=== PATIENT | male | born 1955 | race Caucasian/White ===

== ENCOUNTER → 2017-07-04 | Day surgery (SDC) | payer OTHER ==
[2017-06-29 10:19] VITALS: Ht 182.9 cm; Wt 104.5 kg
[~2017-07-04] VITALS: Ht 182.9 cm; Wt 104.5 kg
[~2017-07-04] MED LIST: AMLO2.5T PO; ASPCH81X PO; COEN100C7 PO; CYCL5TAB PO; HYDR25TA4 PO; INSPMPHMLG; LIDOCAINE HCL 2% 2 ML VIAL (20MG/ML) ONE; LOSA100T65 PO; MIDAZOLAM HCL 1 MG/ML 2ML VIAL ONE; ONDANSETRON INJ 2 MG/ML 2 ML VIAL ONE; PANT40TA PO; PROPOFOL IV EMULSION 10 MG/ML 20 ML VIAL IV ONE; ROSU20TA PO; SODIUM CHLORIDE 0.9% 500ML 500 ML IV ONE
--- NOTE | 2017-07-04 10:28 | Endo History and Physical ---
History & Physical Date of Service: Jul 04, 2017. Chief Complaint: Change in bowel habits Referring Physician: Glenn Yadav History of Present Illness 62 yo CM who presents for colonoscopy secondary to change in bowel habits. Past Medical History Diabetes, Reflux, High Cholesterol, Hypertension Past Surgical History Hx Cardiac Surgery: Yes (HEART CATH-NO STENTS) Hx Internal Defibrillator: No Hx Pacemaker: No Hx Abdominal Surgery: No Hx of Implantable Prosthesis: No Hx Post-Op Nausea and Vomiting: No Hx Cancer Surgery: No Hx Thoracic Surgery: No Hx Orthopedic: Yes (TRIGGER FINGERS BOTH HANDS) Hx Urinary Tract Surgery: No Family History None Social History Smoking Status: Current Every Day Smoker Hx Substance Use: No Hx Alcohol Use: Yes (2 BEERS WEEKLY) Allergies Coded Allergies: Penicillins (Verified Allergy, Unknown, A CHILD, TOLD BY MOTHER, 07/04/17 ) Uncoded Allergies: HAY FEVER (Allergy, Unknown, RUNNY NOSE, 06/29/17) Current Medications Reported Home Medications Medications Dose Route/Sig Max Daily Dose Days Date Category Dose Instructions Protonix (Pantoprazole Sodium) 40 Mg Tab 40 Mg PO QAM 06/29/17 Reported Cozaar (Losartan Potassium) 100 Mg Tab 100 Mg PO QAM 06/29/17 Reported Hctz (Hydrochlorothiazide) 25 Mg Tab 25 Mg PO QPM 06/29/17 Reported Flexeril (Cyclobenzaprine Hcl) 5 Mg Tab 5 Mg PO TID PRN 06/29/17 Reported PRN Crestor (Rosuvastatin Calcium) 20 Mg Tab 20 Mg PO QPM 06/29/17 Reported Coq10 (Coenzyme Q10 (Ubidecarenone)) 100 Mg Cap 1 Cap PO QAM 06/29/17 Reported Aspirin Chewable (Aspirin) 81 Mg Chew 81 Mg PO QAM 06/29/17 Reported Norvasc (Amlodipine Besylate) 2.5 Mg Tab 2.5 Mg PO QPM 06/29/17 Reported Insulin Humalog Pump (Insulin Human Lispro) Pump 1 Ea N/A UD 10/08/11 Reported Vital Signs Weight (Kilograms): 104.55 Height (Feet): 6 Height (Inches): 0 Date Time Temp Pulse Resp B/P (MAP) Pulse Ox O2 Delivery O2 Flow Rate FiO2 07/04/17 10:17 36.8 81 18 117/87 (97) 95 Room Air Physical Exam General Appearance: WD/WN, no apparent distress Respiratory/Chest: Auscultation: breath sounds normal Cardiovascular: Heart Auscultation: RRR Abdomen: Bowel Sounds: normal Inspection & Palpation: soft, non-distended, no tenderness, guarding & rebound Assessment and Plan Assessment: 62 yo CM who presents for colonoscopy secondary to change in bowel habits. Plan: Proceed with colonoscopy.
--- NOTE | 2017-07-04 11:25 | Anesthesiology Progress Note ---
Anesthesia Post Op Note Date & Time Jul 04, 2017 at 11:24 Vital Signs Pain Intensity: 0 Vital Signs Past 12 Hours Date Time Temp Pulse Resp B/P (MAP) Pulse Ox O2 Delivery O2 Flow Rate FiO2 07/04/17 10:17 36.8 81 18 117/87 (97) 95 Room Air Notes Mental Status: alert / awake / arousable, participated in evaluation Pt Amnestic to Procedure: Yes Nausea / Vomiting: adequately controlled Pain: adequately controlled Airway Patency, RR, SpO2: stable & adequate BP & HR: stable & adequate Hydration State: stable & adequate Anesthetic Complications: no major complications apparent
--- NOTE | 2017-07-04 11:53 | GI REPORT ---
Procedure Date: 07/04/2017 10:15 AM Procedure: Colonoscopy Indications: Change in bowel habits Medicines: Monitored Anesthesia Care Complications: No immediate complications. Estimated Blood Loss: Estimated blood loss: none. Procedure: Pre-Anesthesia Assessment: - Prior to the procedure, a History and Physical was performed, and patient medications and allergies were reviewed. The patient's tolerance of previous anesthesia was also reviewed. The risks and benefits of the procedure and the sedation options and risks were discussed with the patient. All questions were answered, and informed consent was obtained. Prior Anticoagulants: The patient has taken aspirin, last dose was 1 day prior to procedure. ASA Grade Assessment: II - A patient with mild systemic disease. After reviewing the risks and benefits, the patient was deemed in satisfactory condition to undergo the procedure. After I obtained informed consent, the scope was passed under direct vision. Throughout the procedure, the patient's blood pressure, pulse, and oxygen saturations were monitored continuously. The scope was introduced through the anus and advanced to the terminal ileum. The colonoscopy was performed without difficulty. The patient tolerated the procedure well. The quality of the bowel preparation was good. The terminal ileum, ileocecal valve, appendiceal orifice, and rectum were photographed. Findings: Two sessile polyps were found in the ascending colon. The polyps were 5 to 8 mm in size. These polyps were removed with a hot snare. Resection and retrieval were complete. To prevent bleeding after the polypectomy, one hemostatic clip was successfully placed (MR conditional). There was no bleeding at the end of the procedure. A 5 mm polyp was found in the transverse colon. The polyp was sessile. The polyp was removed with a hot snare. Resection and retrieval were complete. A 10 mm polyp was found in the rectum. The polyp was pedunculated. The polyp was removed with a hot snare. Resection and retrieval were complete. Multiple small-mouthed diverticula were found in the sigmoid colon. Non-bleeding internal hemorrhoids were found during retroflexion. The hemorrhoids were small. Impression: - Two 5 to 8 mm polyps in the ascending colon, removed with a hot snare. Resected and retrieved. Clip (MR conditional) was placed. - One 5 mm polyp in the transverse colon, removed with a hot snare. Resected and retrieved. - One 10 mm polyp in the rectum, removed with a hot snare. Resected and retrieved. - Diverticulosis in the sigmoid colon. - Non-bleeding internal hemorrhoids. Recommendation: - Resume previous diet. - Continue present medications. - Repeat colonoscopy for surveillance based on pathology results. - Return to primary care physician as previously scheduled. Dale Murillo, DO 07/04/2017 11:52:43 AM This report has been signed electronically. Note Initiated On: 07/04/2017 10:15 AM I attest to the content of the Intraoperative Record and orders documented therein, exceptions below
--- NOTE | 2017-07-04 11:58 | Discharge Instructions ---
Endoscopy Patient Instructions Date / Procedure(s) Performed Jul 04, 2017. Colonoscopy Allergy Information Coded Allergies: Penicillins (Verified Allergy, Unknown, A CHILD, TOLD BY MOTHER, 07/04/17 ) Uncoded Allergies: HAY FEVER (Allergy, Unknown, RUNNY NOSE, 06/29/17) Discharge Date / Findings Jul 04, 2017. Colon polyps Rectal polyp Diverticulosis Internal hemorrhoids Medication Instructions OK to resume all medications today as prescribed Reported Home Medications Medications Dose Route/Sig Max Daily Dose Days Date Category Dose Instructions Protonix (Pantoprazole Sodium) 40 Mg Tab 40 Mg PO QAM 06/29/17 Reported Cozaar (Losartan Potassium) 100 Mg Tab 100 Mg PO QAM 06/29/17 Reported Hctz (Hydrochlorothiazide) 25 Mg Tab 25 Mg PO QPM 06/29/17 Reported Flexeril (Cyclobenzaprine Hcl) 5 Mg Tab 5 Mg PO TID PRN 06/29/17 Reported PRN Crestor (Rosuvastatin Calcium) 20 Mg Tab 20 Mg PO QPM 06/29/17 Reported Coq10 (Coenzyme Q10 (Ubidecarenone)) 100 Mg Cap 1 Cap PO QAM 06/29/17 Reported Aspirin Chewable (Aspirin) 81 Mg Chew 81 Mg PO QAM 06/29/17 Reported Norvasc (Amlodipine Besylate) 2.5 Mg Tab 2.5 Mg PO QPM 06/29/17 Reported Insulin Humalog Pump (Insulin Human Lispro) Pump 1 Ea N/A UD 10/08/11 Reported Provider Instructions Activity Restrictions - No exercising or heavy lifting for 24 hours. - Do not drink alcohol the day of the procedure. - Do not drive a car or operate machinery until the day after the procedure. - Do not make any important decisions or sign important papers in 24 hours after the procedure. Following Day: - Return to full activity which may include returning to work/school. Diet Start your diet with liquids and light foods (jello, soup, juice, toast). Then eat your usual diet if not nauseated. Treatment For Common After Affects For mild abdominal pain, bloating, or excessive gas: - Rest - Eat lightly - Lie on right side Follow-Up Information Follow-up with Glenn Yadav as scheduled Anesthesia Information What You Should Know You have had a procedure that required some medicine to reduce anxiety and discomfort. This treatment is called moderate sedation. After receiving the treatment, you may be sleepy, but you will be able to breathe on your own. The effects of the treatment may last for several hours. Follow these instructions along with Activity/Diet recommendations noted above: * Do NOT do anything where dizziness or clumsiness would be dangerous. * Rest quietly at home today, then you can be up and about tomorrow. * Have a responsible person stay with you the rest of today. * You may have had an I.V. today. If so, you may take the dressing off later today. Recommendations Call your doctor if: * Trouble breathing * Continuous vomiting for more than 24 hours * Temperature above 101 degrees * Severe abdominal pain or bloating * Pain not relieved by pain medicine ordered * There is increased drainage or redness from any incision * A large amount of rectal bleeding greater than 2-3 tablespoons. (If you had a polyp/s removed or have hemorrhoids, a small amount of blood - from the rectum is to be expected.) * You have any unanswered questions or concerns. IN THE EVENT OF A SERIOUS EMERGENCY, GO TO THE NEAREST EMERGENCY ROOM Your discharge instructions were prepared by provider Dale Murillo. Patient Instructions Signature Page Justin Olson Patient (or Guardian) Signature/Date: I have read and understand the instructions given to me by my caregivers. Caregiver/RN/Doctor Signature/Date: The above-named patient and/or guardian has received patient instructions on this date. + Original Patient Signature Page (only) stays with chart. Please make copy for patient.
[2017-07-04 12:30] VITALS: BP 133/78; PULSE 78; O2SAT 98
== END | disposition home or self-care (01) ==
LOC: C.GI 09:50
PROVIDERS: ATTEND Internal Medicine
DX: D12.2 Benign neoplasm of ascending colon (principal); D12.3 Benign neoplasm of transverse colon; D12.8 Benign neoplasm of rectum; K57.30 Diverticulosis of large intestine without perforation or abscess without bleeding; K64.8 Other hemorrhoids; R19.4 Change in bowel habit; I10 Essential (primary) hypertension; E78.00 Pure hypercholesterolemia, unspecified; E11.9 Type 2 diabetes mellitus without complications; K21.9 Gastro-esophageal reflux disease without esophagitis; F17.200 Nicotine dependence, unspecified, uncomplicated; Z79.82 Long term (current) use of aspirin; Z79.899 Other long term (current) drug therapy

== ENCOUNTER 2021-11-29 09:47 | Inpatient (IN) ==
[2021-11-29] MEDS ORDERED: KETOROLAC TROMETHAMINE 15 MG/ML VIAL IV ONE (10:01)
[2021-11-29] MEDS ORDERED: ONDANSETRON INJ 2 MG/ML 2 ML VIAL IV STA (10:01)
[2021-11-29] MEDS ORDERED: MoRPHine SULFATE 10 MG/ML CARP/VIAL IV STA (10:01)
--- NOTE | 2021-11-29 10:06 | Emergency Department Note ---
Impression & Plan Back pain, Blood glucose elevated ED Provider Note NAME: BONY MALDONADO Jr AGE: 66 SEX: M : 1955 ARRIVES VIA: Ambulance INFORMANT: Patient ED PROVIDER(S): Rubén Delacruz DO CHIEF COMPLAINT: Back pain HPI: Patient is a 67-year-old male who presents the ER for back pain. Symptoms started this morning when he woke up. It is in the left lower side. This has been present for the past several years but is significantly worse today. He notes it comes and goes in regards to spasms. Currently only a 2 out of 10 but when the spasms is a 10 out of 10. Denies any fevers or trauma. He notes he sits to put his shoes on and dries off without bending. Denies any trauma or fevers. No belly pain, nausea, vomiting, or diarrhea. No dysuria, urgency, or frequency. No other exacerbating or remitting factors. ROS: See above HPI for pertinent positives & negatives. A total of 10 systems reviewed and were otherwise negative. PAST MEDICAL HISTORY:See Below PAST SURGICAL HISTORY:See Below FAMILY HISTORY:See Below SOCIAL HISTORY:See Below HOME MEDICATIONS:See Below ALLERGIES:See Below VITALS:See Below PHYSICAL EXAMINATION: GENERAL: Sitting up in bed, alert, well appearing, well nourished, no distress, non-toxic EYE EXAM: normal conjunctiva. PERRL and EOM's grossly intact. OROPHARYNX: no exudate, no erythema, lips, buccal mucosa, and tongue normal and mucous membranes are moist NECK: supple, no nuchal rigidity, no adenopathy, non-tender LUNGS: Clear to auscultation. Normal chest wall mechanics HEART: no murmurs, S1 normal and S2 normal ABDOMEN: abdomen soft, non-tender, normo-active bowel sounds, no masses, no rebound or guarding. BACK: Back is symmetrical on inspection and there is no deformity, no midline tenderness, acute reproducible tenderness in the lower lumbar left paraspinal region tracking into left SI joint UPPER EXTREMITIES: upper extremities are grossly normal. LOWER EXTREMITIES:Flexion and extension of the hips, knees, ankles, and EHL 5/5 bilaterally. Gross sensation is intact. DPs are 2/4 bilateral. Patellar and Achilles reflexes are 2/4 bilateral NEURO EXAM: Normal sensorium, cranial nerves II-XII grossly intact, normal speech, no gross weakness of arms, no gross weakness of legs. MEDICAL DECISION MAKING: Patient is a 66-year-old male who presents ER for above-stated complaint. IV was established blood work was obtained.Labs show no significant leukocytosis or anemia. BMP along with LFTs bilirubin and lipase was unremarkable. BSG was slightly elevated at 186. Covid was negative. CT lumbar spine showed DJD with central canal narrowing and mild disc protrusion. He was given multiple doses of morphine as well as IV Toradol. He was comfortable resting but could not sit up secondary to pain. As patient cannot move felt he warranted observation with further pain meds. Triage Nursing notes reviewed. Limited review of prior medical records performed Vital Signs: reviewed and remarkable for no significant abnormalities Differential diagnosis: Differential diagnoses includes but is not limited to lumbar radiculopathy, kidney stone, muscle strain, facture, cauda equina, mass, and disc herniation. ER treatment provided: See below Diagnostics interpreted by me: ECG: none Cardiac Monitoring: An order was placed for continuous cardiac monitoring. The monitor shows a rate of 60 with sinus rhythm. Laboratory studies: As stated above and show below. Imaging studies: CT as discussed above of the lumbar spine Consultation(s): Discussed with Dr. Molina Procedures: none Critical Care: None Past Med/Surg History Medical History Acid reflux Coronary artery disease Moderate non-obstructive CAD per 05/13/21 cardiac cath, Follows with Dr. Carrasco Diabetes + Insulin pump Diabetic retinopathy associated with type 1 diabetes mellitus GERD (gastroesophageal reflux disease) History of neoplasm of bladder Hyperlipidemia Hypertension IBS (irritable bowel syndrome) Peripheral arterial disease R/L LE stents (01/2021, 03/2021) Prostate cancer s/p prostatectomy (~2017) Surgical History History of bladder surgery TURBT (06/27/21): MAC at [facility] History of prostate biopsy History of prostatectomy History of surgical procedure on eye proper using laser R/L laser eye procedure r/t diabetic retinopathy History of tonsillectomy History of tooth extraction History of trigger finger R/L Hx of bilateral cataract extraction Hx of cardiac catheterization 04/2021 > no stents Hx of colonoscopy 2019 Hx of vasectomy S/P angioplasty with stent R/L LE stents (01/2021, 03/2021) Family History Grandmother Family history of diabetes mellitus Daughter Family history of diabetes mellitus Diabetes Sister Diabetes Family history of diabetes mellitus Grandmother (Maternal) Diabetes Father Heart disease Myocardial infarction Grandfather (Paternal) Heart disease Myocardial infarction Other No family history of adverse response to anesthesia Denies family history of Ovarian cancer Prostate cancer Breast cancer Lung cancer Colorectal cancer Stroke Social History Smoking Status: Current every day smoker Tobacco Type: Cigarettes packs per day: 1; Cigarettes Per Day: 20 CIGS A DAY; Second Hand Exposure: Yes (SPOUSE SMOKES); Hx Alcohol Use: Yes Alcohol type: beer Alcohol Intake Frequency: Monthly or Less Hx Substance Use: No Preferred Language: Vietnamese Communication Ability: Effective Visual Impairment: Limited Hearing Ability: Normal Drafting Teacher Required: No Beliefs That Will Affect Care: None marital status: Current Living Situation: Spouse current occupational status: employed 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 How many Children do You have: 3 Feels Safe at Home: Yes Childhood Exposure to Second-Hand Smoke: Yes caffeine: Yes (10 cups/day) during the past year weight has: remained stable Dental Care, Regularly: Yes Physical Activity Frequency: Does not Exercise Seatbelt Use: always Sunscreen Use: No Assistive Devices: Glasses Allergies Allergies Allergy/AdvReac Type Severity Reaction Status Date / Time Penicillins Allergy Unknown Childhood Verified 11/29/21 12:30 (told by mother) Home Meds Home Medications Medication Instructions Recorded Confirmed hydrochlorothiazide 25 mg tablet 25 mg PO QAM 09/11/18 11/29/21 losartan 100 mg tablet 100 mg PO HS 09/11/18 11/29/21 pantoprazole 40 mg tablet,delayed 40 mg PO QAM 09/11/18 11/29/21 release amlodipine 5 mg tablet 5 mg PO HS tab 09/16/18 11/29/21 rosuvastatin 40 mg tablet 40 mg PO HS 10/14/20 11/29/21 docusate sodium 100 mg capsule 100 mg PO HS 03/08/21 11/29/21 (Colace) insulin lispro 100 unit/mL 1 sliding scale dose SUBCUT 03/08/21 11/29/21 subcutaneous solution (Humalog USEASDIRECTD U-100 Insulin) aspirin 81 mg tablet,delayed 81 mg PO QAM 08/23/21 11/29/21 release cholecalciferol (vitamin D3) 125 125 mcg PO QAM 08/29/21 11/29/21 mcg (5,000 unit) tablet (Vitamin D3) linaclotide 290 mcg capsule 290 mcg PO HS 11/29/21 11/29/21 (Linzess) Results & Data (ED) Vital Signs Vital Signs - 24 hr 11/29/21 10:30 11/29/21 11:50 11/29/21 13:00 Temperature 36.7 C Temperature Source Oral Pulse Rate 82 Pulse Rate [Finger] 58 L 58 L Respiratory Rate 20 18 18 Respiratory Depth Normal Blood Pressure 143/82 H Blood Pressure [Right Arm] 146/77 H 128/68 Blood Pressure Mean 102 Blood Pressure Mean [Right Arm] 100 88 Pulse Oximetry 97 96 98 Oxygen Delivery Method Room Air Room Air Room Air Sepsis Recent Fever Within 48 Hours No Sepsis New/Unexplained Change in Mental Status No Sepsis Action Taken by Nursing No Action Required Laboratory Data Result diagrams: 11/29/21 10:00 11/29/21 10:00 Lab Results 11/29/21 11/29/21 11/29/21 Range/Units 10:00 10:00 13:05 WBC 5.08 (4.8-10.8) K/uL RBC 4.58 L (4.7-6.1) M/uL Hgb 14.5 (14.0-18.0) g/dL Hct 42.9 (42-52) % MCV 93.7 (80-100) fL MCH 31.7 (25-34) pg MCHC 33.8 (32-36) g/dL RDW Std Deviation 45.2 (36.4-46.3) fL RDW Coeff of Zeus 13.2 (11.5-14.5) % Plt Count 280 (130-400) K/uL MPV 9.7 (7.4-10.4) fL Immature Gran % (Auto) 0.4 % Neut % (Auto) 56.6 % Lymph % (Auto) 26.2 % Coleman % (Auto) 8.3 % Eos % (Auto) 7.5 % Baso % (Auto) 1.0 % Neut # (Auto) 2.88 (1.4-6.5) K/uL Lymph # (Auto) 1.33 (1.2-3.4) K/uL Coleman # (Auto) 0.42 (0.11-0.59) K/uL Eos # (Auto) 0.38 (0-0.5) K/uL Baso # (Auto) 0.05 (0-0.2) K/uL Immature Gran # (Auto) 0.02 (0.00-0.02) K/uL Sodium 138 (136-145) mmol/L Potassium 3.7 (3.5-5.1) mmol/L Chloride 107 (98-107) mmol/L Carbon Dioxide 25 (21-32) mmol/L Anion Gap 6 (3-11) BUN 14 (6-23) mg/dl Creatinine 0.77 (0.6-1.4) mg/dl Est Cr Clr Drug Dosing Not Reportable Est GFR ( Amer) 108.1 ml/min Est GFR (Non-Af Amer) 93.2 ml/min BUN/Creatinine Ratio 18.2 (10-20) Glucose 186 H (70-99(Fasting)) mg/dl Calcium 9.4 (8.5-10.1) mg/dl Total Bilirubin 0.4 (0.2-1.0) mg/dl AST 17 (13-39) U/L ALT 21 (7-52) U/L Alkaline Phosphatase 50 (34-104) U/L Total Protein 6.6 (6.0-8.3) gm/dl Albumin 4.2 (3.4-5.0) gm/dl Globulin 2.4 L (2.5-4.0) gm/dl Albumin/Globulin Ratio 1.8 (0.9-2) Lipase < 3 L (11-82) U/L SARS-CoV-2, RNA, NAAT NEGATIVE (NEGATIVE) Administered Medications Discontinued Medications Ketorolac Tromethamine (Ketorolac Tromethamine 15 Mg/Ml Vial) 15 mg IV NOW ONE Stop: 11/29/21 10:02 Last Admin: 11/29/21 10:15 Dose: 15 mg Documented by: [id number] Morphine Sulfate (Morphine Sulfate 10 Mg/Ml Carp/Vial) 6 mg IV NOW STA Stop: 11/29/21 10:02 Last Admin: 11/29/21 10:15 Dose: 6 mg Documented by: [id number] Morphine Sulfate (Morphine Sulfate 4 Mg/Ml 1 Ml Carp\Vial) 4 mg IV NOW STA Stop: 11/29/21 12:14 Last Admin: 11/29/21 12:30 Dose: 4 mg Documented by: [id number] Ondansetron HCl (Ondansetron Inj 2 Mg/Ml 2 Ml Vial) 4 mg IV NOW STA Stop: 11/29/21 10:02 Last Admin: 11/29/21 12:30 Dose: Not Given Documented by: [id number] Imaging Data Radiologist's Impression: Lumbar Spine CT 11/29/21 10:[address] DOSE: 654.64 mGycm HISTORY: lower back pain TECHNIQUE: Multiaxial CT images of the lumbar spine were performed and reformatted in the sagittal and coronal plane without the use of contrast. A dose lowering technique was utilized adhering to the principles of ALARA. COMPARISON: Lumbar spine CT 09/14/2020. FINDINGS: No fractures or subluxation within the lumbar spine. Mild disc space narrowing at L5-S1. Mild facet degenerative changes throughout the lumbar spine. The visualized sacrum appears intact. Paravertebral soft tissues are within normal limits. Mild central canal narrowing at L3-L4 and moderate central canal narrowing at L4-5 due to broad-based posterior disc bulges and ligamentum flavum and facet hypertrophy. There is a partially calcified small left paracentral focal disc protrusion at L5-S1 which results in mild central canal narrowing. This remains unchanged. IMPRESSION: 1. No fractures within the lumbar spine. 2. A partially calcified small left paracentral focal disc protrusion at L5-S1 which results in mild central canal narrowing, unchanged. 3. There is mild central canal narrowing at L3-L4 and moderate central canal narrowing at L4-L5 due to broad-based posterior disc bulges, unchanged. ACT 112: Negative or not required by law. Electronically signed by: Greg Glasgow M.D. 11/29/2021 11:10 AM Discharge Plan Visit Data Chief Complaint: Back Injury/Pain Stated Complaint: LOWER L BACK PAIN ED Provider: Rubén Delacruz Discharge Problem: Back pain, Blood glucose elevated Forms Stand Alone Forms: My GetAuto[employer]ids Prescriptions Prescriptions: No Action rosuvastatin 40 mg tablet 40 mg PO HS RF: 0 insulin lispro [Humalog U-100 Insulin] 100 unit/mL solution 1 sliding scale dose subcut USEASDIRECTD RF: 0 pantoprazole 40 mg Tablet,Delayed Release (Dr/Ec) 40 mg PO QAM RF: 0 hydrochlorothiazide 25 mg Tablet 25 mg PO QAM RF: 0 losartan 100 mg Tablet 100 mg PO HS RF: 0 amlodipine 5 mg tablet 5 mg PO HS RF: 0 aspirin 81 mg Tablet,Delayed Release (Dr/Ec) 81 mg PO QAM RF: 0 cholecalciferol (vitamin D3) [Vitamin D3] 125 mcg (5,000 unit) Tablet 125 mcg PO QAM RF: 0 Linzess 290 mcg capsule 290 mcg PO HS RF: 0 docusate sodium [Colace] 100 mg capsule 100 mg PO HS RF: 0 Referrals Referrals: Patrick Raymond DO [Primary Care Provider] - Discharge Problem: Back pain Qualifiers: Back pain location: low back pain Chronicity: acute Back pain laterality: left Sciatica presence: without sciatica Qualified Code(s): M54.50 - Low back pain, unspecified
[2021-11-29 10:22] LABS: Basophils # (auto) 0.05 K/uL (0-0.2); Eosinophils # (auto) 0.38 K/uL (0-0.5); Eosinophils % (auto) 7.5 %; Hematocrit (blood only) 42.9 % (42-52); Hemoglobin 14.5 g/dL (14.0-18.0); Immature Granulocytes # (auto) 0.02 K/uL (0.00-0.02); Immature Granulocytes % (auto) 0.4 %; Lymphocytes # (auto) 1.33 K/uL (1.2-3.4); Lymphocytes % (auto) 26.2 %; Mean Corpuscular Hemoglobin 31.7 pg (25-34); Mean Corpuscular Hgb Conc 33.8 g/dL (32-36); Mean Corpuscular Volume 93.7 fL (80-100); Mean Platelet Volume 9.7 fL (7.4-10.4); Monocytes # (auto) 0.42 K/uL (0.11-0.59); Monocytes % (auto) 8.3 %; Neutrophils # (auto) 2.88 K/uL (1.4-6.5); Neutrophils % (auto) 56.6 %; Platelet Count 280 K/uL (130-400); RDW Coefficient of Variation 13.2 % (11.5-14.5); RDW Standard Deviation 45.2 fL (36.4-46.3); Red Blood Count 4.58 M/uL (4.7-6.1); White Blood Count 5.08 K/uL (4.8-10.8)
[2021-11-29 10:45] LABS: Anion Gap 6 (3-11); BUN Creatinine Ratio 18.2 (10-20); Blood Urea Nitrogen 14 mg/dl (6-23); Calcium 9.4 mg/dl (8.5-10.1); Carbon Dioxide 25 mmol/L (21-32); Chloride 107 mmol/L (98-107); Est GFR (African American) 108.1 ml/min; Est GFR (Non-African American) 93.2 ml/min; Glucose 186 mg/dl (70-99(Fasting)); Potassium 3.7 mmol/L (3.5-5.1); Sodium 138 mmol/L (136-145)
[2021-11-29 10:50] LABS: Alanine Aminotransferase 21 U/L (7-52); Albumin Globulin Ratio 1.8 (0.9-2); Albumin Level 4.2 gm/dl (3.4-5.0); Alkaline Phosphatase 50 U/L (34-104); Aspartate Aminotransferase 17 U/L (13-39); Bilirubin,Total 0.4 mg/dl (0.2-1.0); Globulin 2.4 gm/dl (2.5-4.0); Lipase < 3 U/L (11-82); Total Protein 6.6 gm/dl (6.0-8.3)
--- NOTE | 2021-11-29 11:11 | CT Scan Report ---
LUMBAR SPINE CT CT DOSE: 654.64 mGycm HISTORY: lower back pain TECHNIQUE: Multiaxial CT images of the lumbar spine were performed and reformatted in the sagittal an d coronal plane without the use of contrast. A dose lowering technique was utilized adhering to the principles of ALARA. COMPARISON: Lumbar spine CT 09/14/2020. FINDINGS: No fractures or subluxation within the lumbar spine. Mild disc space narrowing at L5-S1. Mi ld facet degenerative changes throughout the lumbar spine. The visualized sacrum appears intact. Para vertebral soft tissues are within normal limits. Mild central canal narrowing at L3-L4 and moderate c entral canal narrowing at L4-5 due to broad-based posterior disc bulges and ligamentum flavum and fac et hypertrophy. There is a partially calcified small left paracentral focal disc protrusion at L5-S1 which results in mild central canal narrowing. This remains unchanged. IMPRESSION: 1. No fractures within the lumbar spine. 2. A partially calcified small left paracentral focal disc protrusion at L5-S1 which results in mild central canal narrowing, unchanged. 3. There is mild central canal narrowing at L3-L4 and moderate central canal narrowing at L4-L5 due t o broad-based posterior disc bulges, unchanged. ACT 112: Negative or not required by law. Electronically signed by: Greg Glasgow M.D. 11/29/2021 11:10 AM
[2021-11-29] MEDS ORDERED: MoRPHine SULFATE 4 MG/ML 1 ML CARP\\VIAL IV STA (12:13)
--- NOTE | 2021-11-29 14:21 | History & Physical Report ---
Date of Service November 29, 2021 Assessment & Plan (1) Intractable back pain: Plan: Patient without significant findings on lumbar CT Will check MRI of the thoracic and lumbar spine PT/OT evaluation Hold off on steroids secondary to history of diabetes Can try p.o. tramadol along with IV Toradol as needed 3 times daily baclofen ATC and If any findings on MRI or patient continues to have significant pain over 24 hours, consider spinal orthopedics consultation (2) Diabetes mellitus type 1: (3) Insulin pump in place: Plan: Okay for patient to continue insulin pump as noted Diabetic diet (4) Coronary artery disease: Plan: Continue medications as ordered including statin (5) Dyslipidemia: Plan: Statin as noted above (6) Hypertension: Plan: Blood pressure currently 128/60, continue to monitor History of Present Illness Chief Complaint: back pain Primary Care Provider: Patrick Raymond DO This is a 66-year-old male with past medical history of diabetes, previous bladder cancer, peripheral arterial disease presents today complaining of back pain. Patient is a decent historian. Patient states that he has had longstanding pain in his back but is typically not severe. Over the past few weeks, he feels has been getting somewhat worse. 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 This morning, he could not get off the floor secondary to significant pain in his eventually went to the emergency room for further evaluation. He localizes the pain to a point in the left lower lateral region, just over the left iliac crest. This area is tender and very spasmodic. He was given 2 doses of morphine with out much relief and is now being placed in observation for further treatment. Patient denies significant radiation of this pain. He denies any peripheral radiculopathy or neuropathy from this. He does have spasmatic pain even when lying still. He denies systemic symptoms such as fever or chills. Allergies Allergy/AdvReac Type Severity Reaction Status Date / Time Penicillins Allergy Unknown Childhood Verified 11/29/21 12:30 (told by mother) Home Medications Medication Instructions Recorded Confirmed Type hydrochlorothiazide 25 mg tablet 25 mg PO QAM 09/11/18 11/29/21 History losartan 100 mg tablet 100 mg PO HS 09/11/18 11/29/21 History pantoprazole 40 mg tablet,delayed 40 mg PO QAM 09/11/18 11/29/21 History release amlodipine 5 mg tablet 5 mg PO HS tab 09/16/18 11/29/21 History rosuvastatin 40 mg tablet 40 mg PO HS 10/14/20 11/29/21 History docusate sodium 100 mg capsule 100 mg PO HS 03/08/21 11/29/21 History (Colace) insulin lispro 100 unit/mL 1 sliding scale dose SUBCUT 03/08/21 11/29/21 History subcutaneous solution (Humalog USEASDIRECTD U-100 Insulin) aspirin 81 mg tablet,delayed 81 mg PO QAM 08/23/21 11/29/21 History release cholecalciferol (vitamin D3) 125 125 mcg PO QAM 08/29/21 11/29/21 History mcg (5,000 unit) tablet (Vitamin D3) linaclotide 290 mcg capsule 290 mcg PO HS 11/29/21 11/29/21 History (Linzess) Past Med/Surg History Medical History Acid reflux Coronary artery disease Moderate non-obstructive CAD per 05/13/21 cardiac cath, Follows with Dr. Carrasco Diabetes + Insulin pump Diabetic retinopathy associated with type 1 diabetes mellitus GERD (gastroesophageal reflux disease) History of neoplasm of bladder Hyperlipidemia Hypertension IBS (irritable bowel syndrome) Peripheral arterial disease R/L LE stents (01/2021, 03/2021) Prostate cancer s/p prostatectomy (~2017) Surgical History History of bladder surgery TURBT (06/27/21): MAC at [facility] History of prostate biopsy History of prostatectomy History of surgical procedure on eye proper using laser R/L laser eye procedure r/t diabetic retinopathy History of tonsillectomy History of tooth extraction History of trigger finger R/L Hx of bilateral cataract extraction Hx of cardiac catheterization 04/2021 > no stents Hx of colonoscopy 2019 Hx of vasectomy S/P angioplasty with stent R/L LE stents (01/2021, 03/2021) Family History Grandmother Family history of diabetes mellitus Daughter Family history of diabetes mellitus Diabetes Sister Diabetes Family history of diabetes mellitus Grandmother (Maternal) Diabetes Father Heart disease Myocardial infarction Grandfather (Paternal) Heart disease Myocardial infarction Other No family history of adverse response to anesthesia Denies family history of Ovarian cancer Prostate cancer Breast cancer Lung cancer Colorectal cancer Stroke Social History Smoking Status: Current every day smoker Tobacco Type: Cigarettes packs per day: 1; Cigarettes Per Day: 20 CIGS A DAY; Second Hand Exposure: Yes (SPOUSE SMOKES); Hx Alcohol Use: Yes Alcohol type: beer Alcohol Intake Frequency: Monthly or Less Hx Substance Use: No Preferred Language: Greenlandic Communication Ability: Effective Visual Impairment: Limited Hearing Ability: Normal 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 Shellfish Meats Required: No Beliefs That Will Affect Care: None marital status: Current Living Situation: Spouse current occupational status: employed 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 How many Children do You have: 3 Feels Safe at Home: Yes Childhood Exposure to Second-Hand Smoke: Yes caffeine: Yes (10 cups/day) during the past year weight has: remained stable Dental Care, Regularly: Yes Physical Activity Frequency: Does not Exercise Seatbelt Use: always Sunscreen Use: No Assistive Devices: Glasses Review of Systems Constitutional: no fever, no chills, no weakness, no weight loss and no weight gain Eyes: as per Subjective / HPI Respiratory: no cough, no chest congestion, no dyspnea and no dyspnea on exertion Cardiovascular: no chest pain, no orthopnea, no palpitations, no lightheadedness and no edema Gastrointestinal: no abdominal pain, no nausea, no vomiting, no constipation and no diarrhea/loose stools Musculoskeletal: + back pain, + limited range of motion and + problem reported; no neck pain, no joint pain, no stiffness and no myalgia Integumentary: no rash Neurologic: no gait abnormality, no unsteadiness, no falls, no localized weakness, no generalized weakness, no paralysis, no tingling, no numbness, no radiating pain and no restless legs Physical Exam Constitutional: cooperative Neck: trachea midline, no thyromegaly Respiratory: normal respiratory effort Auscultation: lungs clear to auscultation bilaterally; no crackles, no rales, no rhonchi and no wheezes Cardiovascular: Rate/Rhythm: regular rate and regular rhythm Heart Sounds: normal S1, normal S2 and + murmur Gastrointestinal (Abdomen): Inspection/Auscultation: abdomen normal to inspection Percussion/Palpation: abdomen soft; abdomen nontender, no guarding, abdomen not rigid and no hepatosplenomegaly Musculoskeletal: point tenderness as described, no palpable abnormality Skin: no rashes, warm and dry Results & Data Results & Data ([facility]) Vital Signs (Past 12 Hours) Vital Signs Temp Pulse Pulse Resp BP BP Pulse Ox 11/29/21 13:00 58 L 18 128/68 98 11/29/21 11:50 58 L 18 146/77 H 96 11/29/21 10:30 36.7 C 82 20 143/82 H 97 Laboratory Results Laboratory Results WBC 5.08 K/uL (4.8-10.8) 11/29/21 10:00 RBC 4.58 M/uL (4.7-6.1) L 11/29/21 10:00 Hgb 14.5 g/dL (14.0-18.0) 11/29/21 10:00 Hct 42.9 % (42-52) 11/29/21 10:00 MCV 93.7 fL (80-100) 11/29/21 10:00 MCH 31.7 pg (25-34) 11/29/21 10:00 MCHC 33.8 g/dL (32-36) 11/29/21 10:00 RDW Std Deviation 45.2 fL (36.4-46.3) 11/29/21 10:00 RDW Coeff of Zeus 13.2 % (11.5-14.5) 11/29/21 10:00 Plt Count 280 K/uL (130-400) 11/29/21 10:00 MPV 9.7 fL (7.4-10.4) 11/29/21 10:00 Immature Gran % (Auto) 0.4 % 11/29/21 10:00 Neut % (Auto) 56.6 % 11/29/21 10:00 Lymph % (Auto) 26.2 % 11/29/21 10:00 [place] % (Auto) 8.3 % 11/29/21 10:00 Eos % (Auto) 7.5 % 11/29/21 10:00 Baso % (Auto) 1.0 % 11/29/21 10:00 Neut # (Auto) 2.88 K/uL (1.4-6.5) 11/29/21 10:00 Lymph # (Auto) 1.33 K/uL (1.2-3.4) 11/29/21 10:00 [place] # (Auto) 0.42 K/uL (0.11-0.59) 11/29/21 10:00 Eos # (Auto) 0.38 K/uL (0-0.5) 11/29/21 10:00 Baso # (Auto) 0.05 K/uL (0-0.2) 11/29/21 10:00 Immature Gran # (Auto) 0.02 K/uL (0.00-0.02) 11/29/21 10:00 Sodium 138 mmol/L (136-145) 11/29/21 10:00 Potassium 3.7 mmol/L (3.5-5.1) 11/29/21 10:00 Chloride 107 mmol/L (98-107) 11/29/21 10:00 Carbon Dioxide 25 mmol/L (21-32) 11/29/21 10:00 Anion Gap 6 (3-11) 11/29/21 10:00 BUN 14 mg/dl (6-23) 11/29/21 10:00 Creatinine 0.77 mg/dl (0.6-1.4) 11/29/21 10:00 Est Cr Clr Drug Dosing Not Reportable 11/29/21 10:00 Est GFR ( Amer) 108.1 ml/min 11/29/21 10:00 Est GFR (Non-Af Amer) 93.2 ml/min 11/29/21 10:00 BUN/Creatinine Ratio 18.2 (10-20) 11/29/21 10:00 Glucose 186 mg/dl (70-99(Fasting)) H 11/29/21 10:00 Calcium 9.4 mg/dl (8.5-10.1) 11/29/21 10:00 Total Bilirubin 0.4 mg/dl (0.2-1.0) 11/29/21 10:00 AST 17 U/L (13-39) 11/29/21 10:00 ALT 21 U/L (7-52) 11/29/21 10:00 Alkaline Phosphatase 50 U/L (34-104) 11/29/21 10:00 Total Protein 6.6 gm/dl (6.0-8.3) 11/29/21 10:00 Albumin 4.2 gm/dl (3.4-5.0) 11/29/21 10:00 Globulin 2.4 gm/dl (2.5-4.0) L 11/29/21 10:00 Albumin/Globulin Ratio 1.8 (0.9-2) 11/29/21 10:00 Lipase < 3 U/L (11-82) L 11/29/21 10:00 SARS-CoV-2, RNA, NAAT NEGATIVE (NEGATIVE) 11/29/21 13:[address] 11/29/21 10:[address] DOSE: 654.64 mGycm HISTORY: lower back pain TECHNIQUE: Multiaxial CT images of the lumbar spine were performed and reformatted in the sagittal and coronal plane without the use of contrast. A dose lowering technique was utilized adhering to the principles of ALARA. COMPARISON: Lumbar spine CT 09/14/2020. FINDINGS: No fractures or subluxation within the lumbar spine. Mild disc space narrowing at L5-S1. Mild facet degenerative changes throughout the lumbar spine. The visualized sacrum appears intact. Paravertebral soft tissues are within normal limits. Mild central canal narrowing at L3-L4 and moderate central canal narrowing at L4-5 due to broad-based posterior disc bulges and ligamentum flavum and facet hypertrophy. There is a partially calcified small left paracentral focal disc protrusion at L5-S1 which results in mild central canal narrowing. This remains unchanged. IMPRESSION: 1. No fractures within the lumbar spine. 2. A partially calcified small left paracentral focal disc protrusion at L5-S1 which results in mild central canal narrowing, unchanged. 3. There is mild central canal narrowing at L3-L4 and moderate central canal narrowing at L4-L5 due to broad-based posterior disc bulges, unchanged. ACT 112: Negative or not required by law. Electronically signed by: Greg Glasgow M.D. 11/29/2021 11:10 AM PG Care Time/CCT Total # of Minutes Spent Total Time Spent with Patient: Total time spent is greater than 50% in coordination of care (as documented) at patient's floor/unit and/or counseling patient: Coding Level of Care Code INT OBSERVATION CARE 70M LVL 3 Diagnoses Diabetes mellitus type 1 E10.9 Coronary artery disease I25.10 Dyslipidemia E78.5 Hypertension I10 Insulin pump in place Z96.41 Intractable back pain M54.9
[2021-11-29] MEDS ORDERED: DEXTROSE 50% 50 ML SYRINGE IV PRN (16:45)
[2021-11-29] MEDS ORDERED: CARBOHYDRATES FOR HYPOGLYCEMIA PO PRN (16:45)
[2021-11-29] MEDS ORDERED: GLUCAGON FOR INJ 1 MG VIAL SQ PRN (16:45)
[2021-11-29] MEDS ORDERED: INSULIN HUMAN LISPRO (humaLOG) 100 UNITS/ML VIAL SC PRN (16:45)
[2021-11-29] MEDS ORDERED: GLUCOSE 40% GEL 15 GM TUBE PO PRN (16:45)
[2021-11-29] MEDS ORDERED: GLUCOSE 10 TABS/TUBE PO PRN (16:45)
[2021-11-29] MEDS: KETOROLAC TROMETHAMINE 15 MG/ML VIAL IV PRN (17:15)
[2021-11-29] MEDS: traMADol HCL 50 MG TABLET PO PRN (18:09)
[2021-11-29] MEDS: BACLOFEN 20 MG TAB PO SCH (20:44)
[2021-11-29] MEDS: ROSUVASTATIN CALCIUM 20 MG TAB PO SCH (20:44)
[2021-11-29] MEDS: amLODIPine BESYLATE 5 MG TAB PO SCH (20:44)
[2021-11-29] MEDS: ENOXAPARIN INJ 40 MG/0.4 ML SYR SQ SCH (20:45)
[2021-11-29] MEDS: LOSARTAN POTASSIUM 50 MG TAB PO SCH (20:45)
[2021-11-29] MEDS: LINACLOTIDE 145 MCG CAPSULE PO SCH (20:46)
[2021-11-29] MEDS: DOCUSATE SODIUM 100 MG CAP PO SCH (20:46)
[2021-11-29] MEDS ORDERED: HYDROmorphone INJ 0.5 MG/0.5 ML SYR IV STA (22:29)
[2021-11-29] MEDS ORDERED: ONDANSETRON 4 MG OD TAB PO STA (23:57)
[2021-11-30] MEDS: KETOROLAC TROMETHAMINE 15 MG/ML VIAL IV PRN ×3 (00:06→12:20)
[2021-11-30 06:31] LABS: Appearance Urine Clear (Clear); Bilirubin Urine Negative (Negative); Blood Urine Negative (Negative); Color Urine Yellow; Glucose Urine UA Negative (Negative); Ketones Urine 1+ (Negative); Leukocyte Esterase Urine Negative (Negative); Nitrite Urine Negative (Negative); Protein Urine Negative (Negative); Specific Gravity Urine 1.016 (1.000-1.030); Urobilinogen Urine Negative (Negative); pH Urine 6.5 (4.5-7.5)
[2021-11-30 07:55] LABS: Basophils # (auto) 0.05 K/uL (0-0.2); Basophils % (auto) 0.8 %; Eosinophils # (auto) 0.32 K/uL (0-0.5); Eosinophils % (auto) 5.1 %; Hematocrit (blood only) 41.3 % (42-52); Hemoglobin 13.7 g/dL (14.0-18.0); Immature Granulocytes # (auto) 0.02 K/uL (0.00-0.02); Immature Granulocytes % (auto) 0.3 %; Lymphocytes # (auto) 1.11 K/uL (1.2-3.4); Lymphocytes % (auto) 17.8 %; Mean Corpuscular Hemoglobin 31.6 pg (25-34); Mean Corpuscular Hgb Conc 33.2 g/dL (32-36); Mean Corpuscular Volume 95.4 fL (80-100); Mean Platelet Volume 9.6 fL (7.4-10.4); Monocytes # (auto) 0.63 K/uL (0.11-0.59); Monocytes % (auto) 10.1 %; Neutrophils # (auto) 4.12 K/uL (1.4-6.5); Neutrophils % (auto) 65.9 %; Platelet Count 248 K/uL (130-400); RDW Coefficient of Variation 13.3 % (11.5-14.5); RDW Standard Deviation 46.4 fL (36.4-46.3); Red Blood Count 4.33 M/uL (4.7-6.1); White Blood Count 6.25 K/uL (4.8-10.8)
[2021-11-30 08:24] LABS: Albumin Globulin Ratio 1.6 (0.9-2); Albumin Level 3.6 gm/dl (3.4-5.0); BUN Creatinine Ratio 26.8 (10-20); Bilirubin,Total 0.6 mg/dl (0.2-1.0); Calcium 8.9 mg/dl (8.5-10.1); Creatinine Clr Calc Pharmacy 110.4 ml/min; Est GFR (African American) 105.3 ml/min; Est GFR (Non-African American) 90.9 ml/min; Globulin 2.3 gm/dl (2.5-4.0); Potassium 3.6 mmol/L (3.5-5.1); Total Protein 5.9 gm/dl (6.0-8.3)
--- NOTE | 2021-11-30 08:43 | Magnetic Resonance Report ---
MR thoracic spine wo con CLINICAL HISTORY: Chronic back pain with no history of injury. Worsening symptoms. COMPARISON: None. TECHNIQUE: Multiplanar multisequence images of the Thoracic Spine were performed without contrast. FINDINGS: Bones: The bones are osteopenic with old anterior wedge deformities present from T6 through T9. No ac [place] fracture is identified. The heights of the remaining thoracic vertebral bodies are maintained. Th e vertebral bodies are in anatomic alignment. Homogeneous marrow signal is seen without evidence for marrow edema or marrow replacement. Disc spaces: Mild to moderate disc space narrowing is seen throughout the thoracic spine. There are n o focal disc protrusions or herniations identified. There is no significant spinal canal stenosis or neural foraminal narrowing present. Soft tissues: The thoracic spinal cord appears normal. There are no paraspinal fluid collections or s oft tissue masses identified. IMPRESSION: 1. Osteopenia with no acute osseous pathology. 2. Old compression fractures of T6-T9. 3. Degenerative disc disease. ACT 112: Negative or not required by law. Electronically signed by: Inocencio Yousif M.D. 11/30/2021 8:42 AM
[2021-11-30] MEDS: BACLOFEN 20 MG TAB PO SCH ×2 (09:07→14:06)
[2021-11-30] MEDS: PANTOprazole 40 MG TAB PO SCH (09:08)
[2021-11-30] MEDS: CHOLECALCIFEROL 5,000 UNITS 125 MCG TAB PO SCH (09:09)
[2021-11-30] MEDS: hydroCHLOROthiazide 25 MG TAB PO SCH (09:09)
[2021-11-30] MEDS: ASPIRIN 81 MG ECTAB PO SCH (09:10)
--- NOTE | 2021-11-30 10:04 | Magnetic Resonance Report ---
LUMBAR SPINE MRI HISTORY: Low back pain TECHNIQUE: Multiplanar multisequence MRI of the lumbar spine was performed without the use of contras t. COMPARISON: CT lumbar spine 11/29/2021. FINDINGS: For the purpose of the report the L5-S1 disc space will be located on axial image 23 of 25. No fracture or subluxation within the lumbar spine. Small vertebral body hemangiomas at the L1 level measures up to 1 cm. The conus terminates at the L1 level. Paravertebral soft tissues are unremarkabl e. The visualized sacrum is intact. Mild facet degenerative changes at L4-L5 and L5-S1. Mild disc spa ce narrowing and disc desiccation at L3-L4, L4-5, and L5-S1. Remaining disc spaces are preserved. L1-L2: No significant central canal or neural foraminal narrowing. L2-L3: No significant central canal or neural foraminal narrowing. L3-L4: Small broad-based posterior disc bulge with a small focal central disc protrusion resulting in [id number] central canal narrowing. No significant neural foraminal narrowing. L4-L5: Broad-based posterior disc bulge resulting in rnnf-gy-bvojlejr central canal and mild bilatera l neural foraminal narrowing. L5-S1: There is a central/left paracentral focal disc protrusion which abuts but does not displace th e transiting left S1 nerve root. This measures approximately 13 x 4 mm. This results in mild central canal narrowing. No significant neural foraminal narrowing. IMPRESSION: 1. No fracture or subluxation within the lumbar spine. 2. Rrpo-sh-itxyzzzm central canal narrowing at L3-L4 and L4-5 due to the disc bulges/protrusions as d escribed above. 3. There is a central/left paracentral focal disc protrusion at L5-S1 which abuts but does not displa ce the transiting left S1 nerve root. ACT 112: Negative or not required by law. Electronically signed by: Greg Glasgow M.D. 11/30/2021 10:02 AM
[2021-11-30] MEDS: traMADol HCL 50 MG TABLET PO PRN (14:05)
[2021-11-30] MEDS: KETOROLAC TROMETHAMINE 15 MG/ML VIAL IV SCH (15:20)
[2021-11-30] MEDS: MAGNESIUM SULFATE / D5W 1 GM/100 ML BAG IV SCH ×4 (15:21→21:15)
--- NOTE | 2021-11-30 15:44 | Hospitalist Progress Note ---
Date of Service November 30, 2021 Assessment & Plan (1) Intractable back pain: Plan: 66 yo male with history of DM, HLD, bladder and prostate cancer presented with acute on chronic left low back pain. Intractable Back Pain - Presented with 1-day of 10/10 low back pain, in the left thoracolumbar region. - Ddx include degenerative disc disease vs. mechanical low back pain - No focal tenderness on spine or surrounding paraspinal muscles - Lumbar CT: No fractures. Focal disc protrusion at L5-S1 with mild central canal narrowing. Mild central canal narrowing at L3-L4 and moderate central canal narrowing at L4-L5 due to posterior disc bulges. - Thoracic MRI: Osteopenia with DJD. Old compression fractures of T6-T9. - Lumbar MRI: No fracture or subluxation. Jqmz-pg-ycbcfgyb central canal narrowing at L3-L4 and L4-5. Central/left paracentral focal disc protrusion at L5-S1. - CBC was unremarkable. - Continue pain management - 2/: In the ED, PO Tramadol along with IV Toradol. Baclofen ATC 20 mg. - 2/2: Received IV Toradol Q6 and Tylenol 650mg QID. - Suspected spasm of paraspinals and QL - Discontinued Baclofen. Started 5 mg Valium TID - 4 mg Magnesium Sulfate/Dextrose x1 - PT/OT Consulted: recommends acute rehab - Consider ortho consult based on symptom improvement - Consider future epidural steroid injections or short course glucocorticoids Diabetes Mellitus Type I - Continue home insulin pump CAD - Continue home statin Dyslipidemia - Continue home statin as above Hypertension - Continue Amlodipine, Losartan, HCTZ (2) Diabetes mellitus type 1: (3) Insulin pump in place: Plan: Okay for patient to continue insulin pump as noted Diabetic diet (4) Coronary artery disease: Plan: Continue medications as ordered including statin (5) Dyslipidemia: Plan: Statin as noted above (6) Hypertension: Plan: Blood pressure currently 128/60, continue to monitor (7) Diabetic peripheral neuropathy associated with type 1 diabetes mellitus: Admission and Anticipated Discharge Date Admission Date: November 30, 2021 Supervising Physician Co-Signing Physician Notes I personally examined the patient and verified all hollingsworth points of history and exam, discussed case, and agree with decision making with Kumar THOMAS Intractable painmostly in his left low backkind of just above the pelvic brim and lateral to his L-spine. Does not constantly radiate down leggenerally just when he tries to move, at which point he has a shooting pain down his legs that is very intense, but also so fleeting it is really hard to localizeit is down the left leg, he cannot really tell if it is down the front or the back of the leg, and goes away very quickly. The pain is also worse with a cough or a sneezebut this is generally just in the back itself not necessarily going down his leg. He has no paresthesias down the leg, and the leg pain itself is really only an issue as above mentioned. No clear exacerbating factors at onset. Pain itself is very intensebut predominantly just in his low back. Vitals noted, in general he is awake and alert pleasant no distress. HEENT normocephalic atraumatic mucous membranes are moist. Breathing is unlabored no accessory muscle use good effort. Musculoskeletal/osteopathic/neurologiche has pain in his low back, but it is very difficult to reproduce with deep palpation of his paraspinal muscles lower lumbar region muscles, and pelvic stabilizer muscles in his left buttockin none of those regions as the pain really reproducible. Does not really have any bony tenderness either. Left lower extremity does have pain with straight leg raise, but it is hard to tell how specific this is given where his pain is. He has no paresthesias/diminished or altered sensation to confrontational light touch. Intractable low back painhe does have MRI findings that could be consistent with an S1 radiculopathy (more likely than an L4 radiculopathy) but findings to a degree compatible for either. At the same time his history seems to be more consistent with muscle spasm than a true lumbar radiculopathybut his physical e xam conflicts with this given that he does not really have a reproducible or palpable area of spasm. At this point in time will manage conservativelyValium/mag for muscle relaxation. Tylenol/Toradol/morphine for pain. PT/OT eval and treat. Serial examsas the acuity of the pain starts to down, I hope that the accuracy of history and physical will be able to start to tease apart muscular versus radicular. No clear need for Ortho/spine evaluation at this timecertainly nothing about this appears to require an urgent surgery, even if it was radicular, I would recommend steroids and inje ctions 1st as long as we can get the pain under control, and also at this point time his pain seems to be so blinding Gilles acute that it would be probably fairly difficult for orthopedics to have a more accurate evaluation as well. Certainly if things continue to be very hard to discern, or his symptoms are not getting better, or it becomes more clear that it is radicular and symptoms are not impr oving with steroids and injectionsthen Ortho will definitely be consulted. Otherwise as above Marianna Anderson is still in a lot of pain today. He says that the pain is in his back on the left side and hurts with any movement particularly with coughing. The pain shoots down the back middle of his leg. He does not have any numbness, tingling, or loss of sensation down his leg. He described the onset of his pain yesterday saying that he had taken a shower and was sitting on the side of the tub putting his socks on when the pain forced him on all fours and he couldn't move. No recent falls. Denies fever, chills, generalized weakness, weight loss, loss of bowel/bladder function. Review of Systems Review of Systems: see HPI Physical Exam Constitutional: WN/WD, lying comfortably in no acute distress Eyes: PERRL Respiratory: normal respiratory effort Auscultation: lungs clear to auscultation bilaterally; no crackles, no rales, no rhonchi and no wheezes Cardiovascular: Rate/Rhythm: regular rate and regular rhythm Heart Sounds: normal S1, normal S2 and + murmur Musculoskeletal: tenderness on L lateral back in thoracolumbar region. + straight leg test, + contralateral straight leg test, Skin: no rashes, warm and dry Neurologic: AxOx3. CN II-XII intact. Motor- knee flexion 5/5, knee extension 5/5, dorsiflexion 5/5, plantar flexion 5/5. Sensory- normal sensation bilaterally in LE Reflexes- +2/4 bilaterally patellar. +2/4 R Achilles reflex, unable to elicit L Achilles reflex Results & Data Results & Data ([facility]) Vital Signs (Past 12 Hours) Vital Signs Temp Pulse Resp BP Pulse Ox 11/30/21 14:10 36.9 C 62 16 132/70 95 11/30/21 07:41 36.6 C 62 16 144/72 H 92
[2021-11-30] MEDS: ACETAMINOPHEN 325 MG TAB PO SCH ×2 (17:29→21:12)
--- NOTE | 2021-11-30 18:47 | Billing Data ---
Date of Service November 30, 2021 Coding Level of Care Code 34999 Subseq Hosp Care Lvl 3
[2021-11-30] MEDS: diazePAM 5 MG TABLET PO SCH (21:12)
[2021-11-30] MEDS: ROSUVASTATIN CALCIUM 20 MG TAB PO SCH (21:12)
[2021-11-30] MEDS: ENOXAPARIN INJ 40 MG/0.4 ML SYR SQ SCH (21:12)
[2021-11-30] MEDS: LOSARTAN POTASSIUM 50 MG TAB PO SCH (21:13)
[2021-11-30] MEDS: DOCUSATE SODIUM 100 MG CAP PO SCH (21:13)
[2021-11-30] MEDS: amLODIPine BESYLATE 5 MG TAB PO SCH (21:13)
[2021-11-30] MEDS: LINACLOTIDE 145 MCG CAPSULE PO SCH (21:14)
[2021-11-30] MEDS: CALCIUM CARBONATE 500 MG CHEWABLE TAB PO SCH (21:19)
[2021-12-01] MEDS: KETOROLAC TROMETHAMINE 15 MG/ML VIAL IV SCH ×5 (00:05→23:39)
[2021-12-01] MEDS: PANTOprazole 40 MG TAB PO SCH (08:54)
[2021-12-01] MEDS: ACETAMINOPHEN 325 MG TAB PO SCH ×4 (08:54→20:51)
[2021-12-01] MEDS: CALCIUM CARBONATE 500 MG CHEWABLE TAB PO SCH ×2 (08:54→20:52)
[2021-12-01] MEDS: hydroCHLOROthiazide 25 MG TAB PO SCH (08:54)
[2021-12-01] MEDS: CHOLECALCIFEROL 5,000 UNITS 125 MCG TAB PO SCH (08:54)
[2021-12-01] MEDS: ASPIRIN 81 MG ECTAB PO SCH (08:54)
[2021-12-01] MEDS: diazePAM 5 MG TABLET PO SCH ×3 (09:00→20:58)
--- NOTE | 2021-12-01 13:33 | Hospitalist Progress Note ---
Date of Service December 01, 2021 Assessment & Plan (1) Intractable back pain: Plan: 66 yo male with history of DM, HLD, bladder and prostate cancer presented with acute on chronic left low back pain Intractable Back Pain - Presented with 1-day of 10/10 low back pain, in the left thoracolumbar region. - Ddx likely mechanical low back pain - Less likely degenerative disc disease or lumbosacral radiculopathy based on symptom improvement including lack of radicular signs/symptoms - No focal tenderness on spine or surrounding paraspinal muscles - Lumbar CT: No fractures. Focal disc protrusion at L5-S1 with mild central canal narrowing. Mild central canal narrowing at L3-L4 and moderate central canal narrowing at L4-L5 due to posterior disc bulges. - Thoracic MRI: Osteopenia with DJD. Old compression fractures of T6-T9. - Lumbar MRI: No fracture or subluxation. Vgwq-ix-smvyorlj central canal narrowing at L3-L4 and L4-5. Central/left paracentral focal disc protrusion at L5-S1. - CBC was unremarkable. - Continue pain management - 2/: In the ED, PO Tramadol along with IV Toradol. Baclofen ATC 20 mg. - Continue IV Toradol Q6 and Tylenol 650mg QID - Suspected spasm of gluteus minimus - Continue 5 mg Valium TID - 2/2: 4 mg Magnesium Sulfate/Dextrose x1 - PT/OT Consulted: recommends acute rehab - Consider outpatient OMT for muscle spasm Diabetes Mellitus Type I - Continue home insulin pump CAD - Continue home statin Dyslipidemia - Continue home statin as above Hypertension - Continue Amlodipine, Losartan, HCTZ (2) Diabetes mellitus type 1: (3) Insulin pump in place: Plan: Okay for patient to continue insulin pump as noted Diabetic diet (4) Coronary artery disease: Plan: Continue medications as ordered including statin (5) Dyslipidemia: Plan: Statin as noted above (6) Hypertension: Plan: Blood pressure currently 128/60, continue to monitor (7) Diabetic peripheral neuropathy associated with type 1 diabetes mellitus: Admission and Anticipated Discharge Date Admission Date: November 30, 2021 Supervising Physician Co-Signing Physician Notes I personally examined the patient and verified all hollingsworth points of history and exam, discussed case, and agree with decision making with Kumar García MS2 feeling better pain better. pain all at top of pelvic brim L sided nothing down leg, able to walk a little bit better able to move a little more freely. Vitals noted, in general he is awake and alert pleasant no distress. HEENT normocephalic atraumatic mucous membranes moist. Breathing unlabored no accessory muscle use good effort. Skin shows no rashes no pallor or icterus. Neuro without focal deficits. No radicular noted. Musculoskeletal shows a little bit of tenderness in the quadratus lumborum and gluteus minimus regionLAS done with some improvement in tissue texturepatient tolerated well. Intractable low back painnow tractable. Nothing persistently or notably radiculari.e. I do not think he had a lumbar radiculopathy after further review and serial exams. Seems to all be muscle spasm. Probably driven mostly by his gluteus minimus spasm which is now improving. Continue Toradol and Valium as muscle relaxants, add Voltaren gel. OMT as above. PT/OT eval and treat. Otherwise as above Subjective Justin is doing much better today. He said he was able to get out of bed this morning around 4 am to sit in his chair for an hour. He said compared to when he got out of bed with PT yesterday morning, this was much better. His pain is also improved; he has been able to move around the bed more without severe pain. He reports no shooting pain down his leg, no numbness, tingling, or weakness. The pain he describes is still localized to his left lumbosacral region, which he describes particularly with twisting motions. Review of Systems Review of Systems: see HPI Physical Exam Physical Exam: well-appearing, sitting comfortably in bed Eyes: NC/AT, PERRL. oral and pharyngeal mucosa moist Respiratory: normal respiratory effort Auscultation: lungs clear to auscultation bilaterally; no crackles, no rales, no rhonchi and no wheezes Cardiovascular: Rate/Rhythm: regular rate and regular rhythm Heart Sounds: normal S1, normal S2 and + murmur Musculoskeletal: Full hip ROM. On inspection, back was non-erythematous. Non- tender to palpation. (-) straight leg raise test on affected and contralateral leg. Skin: no rashes, warm and dry Neurologic: Motor: 5/5 hip flexion, 5/5 knee flexion, 5/5 knee extension, 5/5 dorsiflexion, 5/5 plantar flexion Sensory: intact bilateral LEs Reflexes: +2/4 bilateral patellar reflexes, +2/4 R Achilles, unable to elicit L Achilles Results & Data Results & Data ([facility]) Vital Signs (Past 12 Hours) Vital Signs Temp Pulse Resp BP Pulse Ox 12/01/21 06:51 36.7 C 58 L 18 146/70 H 95
--- NOTE | 2021-12-01 18:54 | Billing Data ---
Date of Service December 01, 2021 Coding Level of Care Code 52551 Subseq Hosp Care Lvl 3
[2021-12-01] MEDS: LINACLOTIDE 145 MCG CAPSULE PO SCH (20:51)
[2021-12-01] MEDS: ROSUVASTATIN CALCIUM 20 MG TAB PO SCH (20:51)
[2021-12-01] MEDS: amLODIPine BESYLATE 5 MG TAB PO SCH (20:52)
[2021-12-01] MEDS: DOCUSATE SODIUM 100 MG CAP PO SCH (20:52)
[2021-12-01] MEDS: ENOXAPARIN INJ 40 MG/0.4 ML SYR SQ SCH (20:52)
[2021-12-01] MEDS: LOSARTAN POTASSIUM 50 MG TAB PO SCH (20:52)
[2021-12-01] MEDS: DICLOFENAC SOD 1% GEL 100 GM TUBE EXT SCH (20:53)
[2021-12-02] MEDS: KETOROLAC TROMETHAMINE 15 MG/ML VIAL IV SCH ×2 (05:41→13:20)
[2021-12-02 06:58] LABS: BUN Creatinine Ratio 29.3 (10-20); Calcium 9.5 mg/dl (8.5-10.1); Creatinine Clr Calc Pharmacy 98.4 ml/min; Est GFR (African American) 98.7 ml/min; Est GFR (Non-African American) 85.2 ml/min; Potassium 3.3 mmol/L (3.5-5.1)
[2021-12-02] MEDS: ACETAMINOPHEN 325 MG TAB PO SCH ×2 (08:10→13:20)
[2021-12-02] MEDS: ASPIRIN 81 MG ECTAB PO SCH (08:11)
[2021-12-02] MEDS: CHOLECALCIFEROL 5,000 UNITS 125 MCG TAB PO SCH (08:11)
[2021-12-02] MEDS: PANTOprazole 40 MG TAB PO SCH (08:11)
[2021-12-02] MEDS: hydroCHLOROthiazide 25 MG TAB PO SCH (08:11)
[2021-12-02] MEDS: CALCIUM CARBONATE 500 MG CHEWABLE TAB PO SCH (08:12)
[2021-12-02] MEDS: DICLOFENAC SOD 1% GEL 100 GM TUBE EXT SCH ×2 (08:12→13:20)
[2021-12-02] MEDS: diazePAM 5 MG TABLET PO SCH ×2 (08:14→13:20)
[2021-12-02] MEDS ORDERED: POTASSIUM CHLORIDE CRTAB 20 MEQ TABCR PO STA (08:15)
--- NOTE | 2021-12-02 14:49 | Discharge Summary ---
Date of Service December 02, 2021 Admission HPI Per Admitting Provider This is a 66-year-old male with past medical history of diabetes, previous bladder cancer, peripheral arterial disease presents today complaining of back pain. Patient is a decent historian. Patient states that he has had longstanding pain in his back but is typically not severe. Over the past few weeks, he feels has been getting somewhat worse. 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 This morning, he could not get off the floor secondary to significant pain in his eventually went to the emergency room for further evaluation. He localizes the pain to a point in the left lower lateral region, just over the left iliac crest. This area is tender and very spasmodic. He was given 2 doses of morphine with out much relief and is now being placed in observation for further treatment. Patient denies significant radiation of this pain. He denies any peripheral radiculopathy or neuropathy from this. He does have spasmatic pain even when lying still. He denies systemic symptoms such as fever or chills. Admission Exam Per Admitting Provider Constitutional: cooperative Neck: trachea midline, no thyromegaly Respiratory: normal respiratory effort Auscultation: lungs clear to auscultation bilaterally; no crackles, no rales, no rhonchi and no wheezes Cardiovascular: Rate/Rhythm: regular rate and regular rhythm Heart Sounds: normal S1, normal S2 and + murmur B Gastrointestinal (Abdomen): Inspection/Auscultation: abdomen normal to inspection Percussion/Palpation: abdomen soft; abdomen nontender, no guarding, abdomen not rigid and no hepatosplenomegaly Musculoskeletal: point tenderness as described, no palpable abnormality Skin: no rashes, warm and dry Principal Diagnosis Intractable Back Pain Discharge Exam Physical Exam: well-appearing, sitting comfortably in bed Eyes: NC/AT, PERRL. oral and pharyngeal mucosa moist Respiratory: normal respiratory effort Auscultation: lungs clear to auscultation bilaterally; no crackles, no rales, no rhonchi and no wheezes Cardiovascular: Rate/Rhythm: regular rate and regular rhythm Heart Sounds: normal S1, normal S2 and + murmur Musculoskeletal: Full hip ROM. On inspection, back was non-erythematous. Non- tender to palpation. Palpated taught gluteus minimus. (-) straight leg raise test on affected and contralateral leg. Skin: no rashes, warm and dry Neurologic: Motor: 5/5 hip flexion, 5/5 knee flexion, 5/5 knee extension, 5/5 dorsiflexion, 5/5 plantar flexion Sensory: intact bilateral LEs Reflexes: +2/4 bilateral patellar reflexes, +2/4 R Achilles, unable to elicit L Achilles Discharge Data Allergies Allergy/AdvReac Type Severity Reaction Status Date / Time Penicillins Allergy Unknown Childhood Verified 11/29/21 12:30 (told by mother) Consultations 11/29/21 12:46 ED Decision to Admit Stat Ordered Studies Laboratory Results WBC 6.25 K/uL (4.8-10.8) 11/30/21 07:31 RBC 4.33 M/uL (4.7-6.1) L 11/30/21 07:31 Hgb 13.7 g/dL (14.0-18.0) L 11/30/21 07:31 Hct 41.3 % (42-52) L 11/30/21 07:31 MCV 95.4 fL (80-100) 11/30/21 07:31 MCH 31.6 pg (25-34) 11/30/21 07:31 MCHC 33.2 g/dL (32-36) 11/30/21 07:31 RDW Std Deviation 46.4 fL (36.4-46.3) H 11/30/21 07:31 RDW Coeff of Zeus 13.3 % (11.5-14.5) 11/30/21 07:31 Plt Count 248 K/uL (130-400) 11/30/21 07:31 MPV 9.6 fL (7.4-10.4) 11/30/21 07:31 Immature Gran % (Auto) 0.3 % 11/30/21 07:31 Neut % (Auto) 65.9 % 11/30/21 07:31 Lymph % (Auto) 17.8 % 11/30/21 07:31 [place] % (Auto) 10.1 % 11/30/21 07:31 Eos % (Auto) 5.1 % 11/30/21 07:31 Baso % (Auto) 0.8 % 11/30/21 07:31 Neut # (Auto) 4.12 K/uL (1.4-6.5) 11/30/21 07:31 Lymph # (Auto) 1.11 K/uL (1.2-3.4) L 11/30/21 07:31 [place] # (Auto) 0.63 K/uL (0.11-0.59) H 11/30/21 07:31 Eos # (Auto) 0.32 K/uL (0-0.5) 11/30/21 07:31 Baso # (Auto) 0.05 K/uL (0-0.2) 11/30/21 07:31 Immature Gran # (Auto) 0.02 K/uL (0.00-0.02) 11/30/21 07:31 Sodium 140 mmol/L (136-145) 12/02/21 05:37 Potassium 3.3 mmol/L (3.5-5.1) L 12/02/21 05:37 Chloride 105 mmol/L (98-107) 12/02/21 05:37 Carbon Dioxide 28 mmol/L (21-32) 12/02/21 05:37 Anion Gap 7 (3-11) 12/02/21 05:37 BUN 27 mg/dl (6-23) H 12/02/21 05:37 Creatinine 0.92 mg/dl (0.6-1.4) 12/02/21 05:37 Est Cr Clr Drug Dosing 98.4 ml/min 12/02/21 05:37 Est GFR ( Amer) 98.7 ml/min 12/02/21 05:37 Est GFR (Non-Af Amer) 85.2 ml/min 12/02/21 05:37 BUN/Creatinine Ratio 29.3 (10-20) H 12/02/21 05:37 Glucose 59 mg/dl (70-99(Fasting)) L 12/02/21 05:37 POC Glucose 219 mg/dl (70-99) H 12/02/21 12:28 Calcium 9.5 mg/dl (8.5-10.1) 12/02/21 05:37 Total Bilirubin 0.6 mg/dl (0.2-1.0) 11/30/21 07:31 AST 15 U/L (13-39) 11/30/21 07:31 ALT 19 U/L (7-52) 11/30/21 07:31 Alkaline Phosphatase 52 U/L (34-104) 11/30/21 07:31 Total Protein 5.9 gm/dl (6.0-8.3) L 11/30/21 07:31 Albumin 3.6 gm/dl (3.4-5.0) 11/30/21 07:31 Globulin 2.3 gm/dl (2.5-4.0) L 11/30/21 07:31 Albumin/Globulin Ratio 1.6 (0.9-2) 11/30/21 07:31 Lipase < 3 U/L (11-82) L 11/29/21 10:00 Urine Color Yellow 11/30/21 05:25 Urine Appearance Clear (Clear) 11/30/21 05:25 Urine pH 6.5 (4.5-7.5) 11/30/21 05:25 Ur Specific [place] 1.016 (1.000-1.030) 11/30/21 05:25 Urine Protein Negative (Negative) 11/30/21 05:25 Urine Glucose (UA) Negative (Negative) 11/30/21 05:25 Urine Ketones 1+ (Negative) H 11/30/21 05:25 Urine Blood Negative (Negative) 11/30/21 05:25 Urine Nitrite Negative (Negative) 11/30/21 05:25 Urine Bilirubin Negative (Negative) 11/30/21 05:25 Urine Urobilinogen Negative (Negative) 11/30/21 05:25 Ur Leukocyte Esterase Negative (Negative) 11/30/21 05:25 SARS-CoV-2, RNA, NAAT NEGATIVE (NEGATIVE) 11/29/21 13:[address] 11/29/21 10:[address] DOSE: 654.64 mGycm HISTORY: lower back pain TECHNIQUE: Multiaxial CT images of the lumbar spine were performed and reformatted in the sagittal and coronal plane without the use of contrast. A dose lowering technique was utilized adhering to the principles of ALARA. COMPARISON: Lumbar spine CT 09/14/2020. FINDINGS: No fractures or subluxation within the lumbar spine. Mild disc space narrowing at L5-S1. Mild facet degenerative changes throughout the lumbar spine. The visualized sacrum appears intact. Paravertebral soft tissues are within normal limits. Mild central canal narrowing at L3-L4 and moderate central canal narrowing at L4-5 due to broad-based posterior disc bulges and ligamentum flavum and facet hypertrophy. There is a partially calcified small left paracentral focal disc protrusion at L5-S1 which results in mild central canal narrowing. This remains unchanged. IMPRESSION: 1. No fractures within the lumbar spine. 2. A partially calcified small left paracentral focal disc protrusion at L5-S1 which results in mild central canal narrowing, unchanged. 3. There is mild central canal narrowing at L3-L4 and moderate central canal narrowing at L4-L5 due to broad-based posterior disc bulges, unchanged. ACT 112: Negative or not required by law. Electronically signed by: Greg Glasgow M.D. 11/29/2021 11:10 AM Lumbar Spine MRI 11/29/21 14:22 LUMBAR SPINE MRI HISTORY: Low back pain TECHNIQUE: Multiplanar multisequence MRI of the lumbar spine was performed without the use of contrast. COMPARISON: CT lumbar spine 11/29/2021. FINDINGS: For the purpose of the report the L5-S1 disc space will be located on axial image 23 of 25. No fracture or subluxation within the lumbar spine. Small vertebral body hemangiomas at the L1 level measures up to 1 cm. The conus terminates at the L1 level. Paravertebral soft tissues are unremarkable. The visualized sacrum is intact. Mild facet degenerative changes at L4-L5 and L5-S1. Mild disc space narrowing and disc desiccation at L3-L4, L4-5, and L5-S1. Remaining disc spaces are preserved. L1-L2: No significant central canal or neural foraminal narrowing. L2-L3: No significant central canal or neural foraminal narrowing. L3-L4: Small broad-based posterior disc bulge with a small focal central disc protrusion resulting in vceh-ap-aflwlgqi central canal narrowing. No significant neural foraminal narrowing. L4-L5: Broad-based posterior disc bulge resulting in devo-sl-tmwkoego central canal and mild bilateral neural foraminal narrowing. L5-S1: There is a central/left paracentral focal disc protrusion which abuts but does not displace the transiting left S1 nerve root. This measures approximately 13 x 4 mm. This results in mild central canal narrowing. No significant neural foraminal narrowing. IMPRESSION: 1. No fracture or subluxation within the lumbar spine. 2. Fcgr-hr-htrlnsth central canal narrowing at L3-L4 and L4-5 due to the disc bulges/protrusions as described above. 3. There is a central/left paracentral focal disc protrusion at L5-S1 which abuts but does not displace the transiting left S1 nerve root. ACT 112: Negative or not required by law. Electronically signed by: Greg Glasgow M.D. 11/30/2021 10:02 AM Thoracic Spine MRI 11/29/21 14:22 MR thoracic spine wo con CLINICAL HISTORY: Chronic back pain with no history of injury. Worsening symptoms. COMPARISON: None. TECHNIQUE: Multiplanar multisequence images of the Thoracic Spine were performed without contrast. FINDINGS: Bones: The bones are osteopenic with old anterior wedge deformities present from T6 through T9. No acute fracture is identified. The heights of the remaining thoracic vertebral bodies are maintained. The vertebral bodies are in anatomic alignment. Homogeneous marrow signal is seen without evidence for marrow edema or marrow replacement. Disc spaces: Mild to moderate disc space narrowing is seen throughout the thoracic spine. There are no focal disc protrusions or herniations identified. There is no significant spinal canal stenosis or neural foraminal narrowing present. Soft tissues: The thoracic spinal cord appears normal. There are no paraspinal fluid collections or soft tissue masses identified. IMPRESSION: 1. Osteopenia with no acute osseous pathology. 2. Old compression fractures of T6-T9. 3. Degenerative disc disease. ACT 112: Negative or not required by law. Electronically signed by: Inocencio Yousif M.D. 11/30/2021 8:42 AM Hospital Course (1) Intractable back pain: 66 yo male with history of DM, HLD, bladder and prostate cancer presented with acute on chronic left low back pain. Intractable Back Pain - Presented with severe low back pain, in the left thoracolumbar region. - likely mechanical low back pain; less likely 2/2 DJD or lumbosacral radiculopathy although may be superimposed - No spinal or focal musculature tenderness palpation, however, presence of taut gluteus minimus - Lumbar CT: No fractures. Focal disc protrusion at L5-S1 with mild central canal narrowing. Mild central canal narrowing at L3-L4 and moderate central canal narrowing at L4-L5 due to posterior disc bulges. - Thoracic MRI: Osteopenia with DJD. Old compression fractures of T6-T9. - Lumbar MRI: No fracture. mild-moderate central canal narrowing at L3-L4 and L4-5. Central/left paracentral focal disc protrusion at L5-S1. - treated with Toradol, magnesium, and valium during stay - PT/OT: recommended acute rehab - patient stable for home discharge - continue with valium 5mg TID for 3 days - ibuprofen 800mg TID 3 days scheduled, then PRN going forward; may also apply voltaren gel to affected area - referred to Dr. Rey Case for OMT - walker provided for ambulatory support - consider future PT Diabetes Mellitus Type I - Continue home insulin pump CAD - Continue home statin, aspirin Dyslipidemia - Continue home statin Hypertension - Continue Amlodipine, Losartan, HCTZ (2) Diabetes mellitus type 1: (3) Insulin pump in place: (4) Coronary artery disease: (5) Dyslipidemia: (6) Hypertension: (7) Diabetic peripheral neuropathy associated with type 1 diabetes mellitus: Total Time Total Time Spent Total Time Spent (In Minutes): <30 Discharge Plan Discharge Items Patient Disposition: Home - Self-Care Reason For Visit: LOWER L BACK PAIN Discharge Diagnosis: Intractable Back Pain Activity: Per Instructions section Non-emergency contact: Primary Care Provider Call non-emergency contact if: you have any medication questions and your symptoms worsen Follow-up/Referrals: Macho Case DO [Physician] - 12/07/21 11:20 am (low back pain 2/2 ?gluteus minimus spasm, would benefit from OMT) Patrick Raymond DO [Primary Care Provider] - 12/05/21 11:00 am Diet: Carb Count or DM1 Addtl Attending Provider Instructions: You were admitted to the hospital for severe low back pain. After evaluation, it appears this exacerbation of low back pain was due to muscle spasm and tightness more specifically near the gluteus minimus. You were treated here with valium (muscle relaxer) and toradol (NSAID) which has helped with your pain and muscle spasms. Going forward, we will continue your Valium for 3 more days. We will also provide ibuprofen (NSAID) for pain relief and anti-inflammation. You should take it scheduled 3 times a day for next 2-3 days and then only take as needed from there on. Do not use ibuprofen for more than 1-2 weeks. You may switch to tylenol if you need further pain relief. You can discuss this with your primary care provider or Dr. Rey Case who we will refer you to. He specializes in osteopathic manipulative treatment which may help treat the gluteus minimus and alleviate your symptoms. In the future we can also consider physical therapy if necessary. You can also put voltaren gen (topical NSAID) onto the region of muscle tightness. A discharge summary will be sent to your primary care physician to ensure continuity of care. Please bring this discharge summary with you to your next office appointment so that your provider can review it at that time. Follow-up appointments: Make a follow-up appointment with your PCP within the next week. It is very important that you follow up with them shortly after discharge from the hospital. We have requested a follow-up appointment with your primary care physician within one week of discharge. Please call their office if you do not hear from them. Keep all your follow-up appointments as already scheduled. If you cannot make an appointment, notify your provider. Medications: Your medication list has been reviewed and reconciled upon discharge to ensure accuracy and continuity of care. An updated list of all your medications is included with your hospital discharge paperwork. Please review this list closely,and make note of any changes. We sent a new medication called valium to your pharmacy. Take valium 5mg one tablet 3x/daily for 3 days. We sent a new medication called ibuprofen to your pharmacy. Take ibuprofen 800mg one tablet 3x/daily for 3 days. After that, ONLY take it as needed for the next 1-2 weeks. If pain still an issue from there on, should switch to tylenol. You can also rock picker voltaren gel over the counter to apply to affected area on back. Walker provided as well to help with ambulation. Take your medications as instructed; do not skip a dose of your medicines. Make sure all of your doctors know every medicine you are taking (including yhtr-keu-bbhpoog medicines, vitamins,and supplements). Call your primary care provider before taking any new medicines (including sfix-aru-zjjewzr medicines, vitamins, and supplements),because some of these may interact with your current medications, or may make your symptoms worse. Tell your primary care provider if you cannot afford your medications. CONTACT YOUR PRIMARY CARE PROVIDER if you experience any of the following: severe back pain, fever Difficulty following your treatment plan, or difficulty taking medications. CALL 911 OR GO TO THE EMERGENCY DEPARTMENT if you experience any of the following: Sudden, severe abdominal pain or nausea/vomiting Severe chest pain, or chest pain that radiates (moves)to your jaw or arm Sudden, severe shortness of breath or difficulty breathing Thank you for allowing us to participate in your care. Pending Studies at Discharge: No Stand-Alone Forms: My [facility], Smoking Cessation Medications and DC Order Prescriptions: New diclofenac sodium [Voltaren Arthritis Pain] 1 % gel 2 g topical QID PRN (Reason: muscle spasm) Qty: 100 RF: 0 ibuprofen 800 mg tablet 800 mg PO .PRN Qty: 21 RF: 0 diazepam 5 mg Tablet 5 mg PO TID PRN (Reason: spasms) Qty: 10 RF: 0 Continued rosuvastatin 40 mg tablet 40 mg PO HS RF: 0 insulin lispro [Humalog U-100 Insulin] 100 unit/mL solution 1 sliding scale dose subcut USEASDIRECTD RF: 0 pantoprazole 40 mg Tablet,Delayed Release (Dr/Ec) 40 mg PO QAM RF: 0 hydrochlorothiazide 25 mg Tablet 25 mg PO QAM RF: 0 losartan 100 mg Tablet 100 mg PO HS RF: 0 amlodipine 5 mg tablet 5 mg PO HS RF: 0 aspirin 81 mg Tablet,Delayed Release (Dr/Ec) 81 mg PO QAM RF: 0 cholecalciferol (vitamin D3) [Vitamin D3] 125 mcg (5,000 unit) Tablet 125 mcg PO QAM RF: 0 Linzess 290 mcg capsule 290 mcg PO HS RF: 0 docusate sodium [Colace] 100 mg capsule 100 mg PO HS RF: 0 Discharge Orders: Discharge Order (Routine); Ordered 12/02/21 Ordered By: Everette Ruano/Other Patient Handouts: Relieving Back Pain Admission Data Admit Date/Time: 11/30/21 13:13 Attending Provider: Rubén Kelley Admit Provider: Bernardo George Primary Care Provider: Patrick Raymond Other Providers: Bernardo George ; [place] ; José Luis Hoyt [facility] Other Interventions: Discharge Summary Assessment (RN) Last Done: 12/02/21 15:13 Supervising Physician Co-Signing Physician Notes I personally examined the patient and verified all hollingsworth points of history and exam, discussed case, and agree with decision making with Dr. Peterson Feeling better and feeling up to going home Vitals noted, in general he is awake and alert pleasant no distress. HEENT normocephalic atraumatic mucous membranes moist. Breathing unlabored no accessory muscle use good effort. Skin shows no rashes no pallor or icterus. Neuro without focal deficits. Intractable low back painnow tractable. Stable for home nothing persistently or notably radiculari.e. I do not think he had a lumbar radiculopathy after further review and serial exams. Seems to all be muscle spasm. Probably driven mostly by his gluteus minimus spasm which is now improving. 2-3 more days of Valium 3 times daily as needed, ibuprofen as needed. Voltaren gel to the area. Outpatient OMT if needed Otherwise as above Resident Activity Tracking Resident Involvement: Resident Care Provided Care Provided: Adult Hospital Medicine
== END 2021-12-02 16:04 | disposition home or self-care (01) | DRG 552 ==
LOC: ED 09:47 → 3N 09:47 → SUATTDRO 14:22 → 3N 15:35